=== PATIENT | male | born 1945 | race Caucasian/White ===

== ENCOUNTER 2023-05-25 06:49 | Day surgery (SDC) | payer BC, MEDICARE, OTHER ==
[2023-05-25] MEDS ORDERED: fentaNYL 50 MCG/ML SDV ONE (07:15)
[2023-05-25] MEDS ORDERED: Propofol 200 MG/20 ML SDV ONE (07:15)
[2023-05-25] MEDS: Sodium Chloride 0.9% 1,000 ML IV SCH (07:37)
[2023-05-25 09:36] VITALS: BP 146/79; PULSE 51
== END 2023-05-25 09:42 | disposition home or self-care (01) ==
LOC: JP.SDS 06:49
PROVIDERS: ATTEND Surgery
DX: Z12.11 Encounter for screening for malignant neoplasm of colon (principal); D12.5 Benign neoplasm of sigmoid colon; K63.5 Polyp of colon; K57.30 Diverticulosis of large intestine without perforation or abscess without bleeding; I25.10 Atherosclerotic heart disease of native coronary artery without angina pectoris; Z95.1 Presence of aortocoronary bypass graft
CPT/HCPCS: 45380; J2704; J3010; J7030; 88305